=== PATIENT | male | born 1940 | race Caucasian/White ===

== ENCOUNTER 2018-08-15 09:49 | Emergency (ER) | payer MEDICARE, OTHER ==
[~2018-08-15] VITALS: Ht 167.6 cm; Wt 88.5 kg
[~2018-08-15 09:49] MED LIST: AMLO5 PO; ATOR40TA PO; BISA10S PR; CALMOSEPTINE O3.5 GM TP; CHOL10002 PO; CLOBET30L TOP; Calmoseptine Oi71 GM; DILT120 PO; DIPATR PO; DOXA4 PO; Diltiazem ER120 M1 PO; FINA5 PO; FURO20 PO; HYDACE5 PO; HYDACE5325 PO; LANS30EC PO; LEVE500 PO; LISI20 PO; LOSA50 PO; MECL25 PO; MIRT15ST MM; OMEP10ER PO; OMEP20ER PO; OMEPRAZOLE; POLY17UD PO; POTCHL10ER PO; RANI150 PO; SCOPTP TOP; SERT50 PO; SIMV40 PO; TAMS.4ER PO; WARF2.5 PO; WARF3 PO; WARF4 PO; WARF5 PO; WARF6 PO
[2018-08-15] MEDS ORDERED: WARF3 PO (10:04)
[2018-08-15] MEDS ORDERED: Cephalexin500 MG PO (10:34)
== END 2018-08-15 11:45 | disposition home or self-care (01) ==
LOC: ER 09:49
DX: I73.9 Peripheral vascular disease, unspecified (principal); I10 Essential (primary) hypertension; I48.91 Unspecified atrial fibrillation; Z79.01 Long term (current) use of anticoagulants; Z79.899 Other long term (current) drug therapy; Z86.73 Personal history of transient ischemic attack (TIA), and cerebral infarction without residual deficits; Z87.891 Personal history of nicotine dependence
CPT/HCPCS: 99283

== ENCOUNTER 2021-06-30 05:24 | Inpatient (IN) | payer MEDICARE, OTHER ==
[~2021-06-30] VITALS: Ht 165.1 cm; Wt 88.2 kg
[~2021-06-30 05:24] MED LIST changes: +Cephalexin500 MG PO
[2021-06-30 05:52] LABS: BASOPHILS ABSOLUTE AUTO 0.03 K/mm3 (0.00-0.23); BASOPHILS PERCENT AUTO 0 % (0-2); EOSINOPHILS ABSOLUTE AUTO 0.05 K/mm3 (0.00-0.68); EOSINOPHILS PERCENT AUTO 0 % (0-6); Hematocrit 36.3 % (37.0-53.0); Hemoglobin 11.9 g/dL (13.5-17.5); IMMATURE GRAN ABSOLUTE AUTO 0.14 K/mm3 (0.00-0.10); IMMATURE GRAN PERCENT AUTO 1 % (0-1); LYMPHOCYTES ABSOLUTE AUTO 0.52 K/mm3 (0.84-5.20); LYMPHOCYTES PERCENT AUTO 2 % (21-46); MONOCYTES PERCENT AUTO 1 % (4-13); Mean Corpuscular HGB 29.5 pg (26.0-34.0); Mean Corpuscular HGB Conc 32.8 g/dL (31.5-36.5); Mean Corpuscular Volume 90 fL (80-100); Mean Platelet Volume 10.9 fL (9.1-12.4); NEUTROPHILS ABSOLUTE AUTO 21.25 K/mm3 (1.96-9.15); NEUTROPHILS PERCENT AUTO 96 % (41-73); Platelet Count 359 K/mm3 (150-400); RDW Coefficient Variation 15.2 % (11.7-14.2); RDW Standard Deviation 49.9 fL (35.1-46.3); Red Blood Cell Count 4.03 M/mm3 (4.30-5.90); White Blood Cell Count 22.19 K/mm3 (4.00-11.30)
[2021-06-30 07:19] LABS: Troponin I <0.015 ng/mL (0.000-0.040)
[2021-06-30 07:21] LABS: Alanine Aminotransfer (ALT/SGP 28 U/L (12-78); Albumin, Blood 2.4 g/dL (3.4-5.0); Albumin/Globulin Ratio 0.5 (0.8-1.8); Alk Phos 137 U/L (50-136); Anion Gap 6 mmol/L (6-16); Aspartate Aminotrans (AST/SGOT 33 U/L (12-37); Bilirubin, Total 1.7 mg/dL (0.1-1.0); Blood Urea Nitrogen 51 mg/dL (8-24); Bun/Creatinine Ratio 14.5 (12.0-20.0); CO2, Blood 25 mmol/L (21-32); Calcium, Blood 8.7 mg/dL (8.5-10.1); Chloride, Blood 100 mmol/L (98-108); Creatinine, Blood 3.52 mg/dL (0.60-1.20); Globulin, Blood 4.5 g/dL (2.2-4.0); Glomerular Filtration Rate 17 (60-); Glucose, Blood 134 mg/dL (70-99); Potassium, Blood 6.4 mmol/L (3.5-5.5); Sodium, Blood 131 mmol/L (136-145); Total Protein, Blood 6.9 g/dL (6.4-8.2)
[2021-06-30] MEDS ORDERED: DILTIAZEM HCL120 MG PO (08:31)
[2021-06-30] MEDS ORDERED: WARF3 PO (08:32)
[2021-06-30] MEDS ORDERED: MYLANTA GAS MIN42 MG PO (08:33)
[2021-06-30] MEDS ORDERED: WARF4 PO (08:33)
[2021-06-30] MEDS ORDERED: BISA10S PR (08:34)
[2021-06-30] MEDS ORDERED: LOPE2C PO (08:35)
[2021-06-30] MEDS ORDERED: DULCOLAX400 MG/5 M PO (08:35)
[2021-06-30 09:06] LABS: SARS-Cov-2 (COVID-19) PCR, MMC POSITIVE (NEGATIVE)
[2021-06-30 09:39] LABS: Source, Urine Clean Catch
[2021-06-30 09:43] LABS: Appearance, Urine Hazy (Clear); Bilirubin, Urine Neg (Neg); Blood, Urine 5+ (Neg); Color, Urine Yellow (P-Yellow); Glucose Qualitative, Urine Neg (Neg); Ketones, Urine Neg (Neg); Leukocyte Esterase, Urine 3+ (Neg); Nitrite, Urine Neg (Neg); Protein, Urine 3+ (Neg); Urobilinogen, Urine NORM (Normal)
[2021-06-30 10:26] LABS: Red Blood Cells, Urine 0-2 /hpf (0-2); Squamous Epithelial Cells Few /hpf (Few); White Blood Cells, Urine 50-100 /hpf (0-5)
[2021-06-30 10:28] LABS: Bacteria Mod /hpf
[2021-06-30 11:47] LABS: Prothrombin Time Results >90.0 Sec (9.7-11.5)
[2021-06-30 11:48] LABS: International Normalized Ratio >10.00
[2021-06-30 14:43] LABS: Source, Urine Catheter
[2021-06-30 14:48] LABS: Appearance, Urine Turbid (Clear); Bilirubin, Urine Neg (Neg); Blood, Urine 5+ (Neg); Color, Urine Brown (P-Yellow); Glucose Qualitative, Urine Neg (Neg); Ketones, Urine Neg (Neg); Leukocyte Esterase, Urine 3+ (Neg); Nitrite, Urine Neg (Neg); Protein, Urine 3+ (Neg); Specific Gravity, Urine 1.015 (1.003-1.022); Urobilinogen, Urine NORM (Normal); pH, Urine 6.5 (5.0-8.0)
[2021-06-30 14:58] LABS: Bacteria Mod /hpf; Squamous Epithelial Cells Not Seen /hpf (Few); White Blood Cells, Urine TNTC /hpf (0-5)
--- NOTE | 2021-06-30 17:52 | NUR ---
PT ADMITTED 1500, ORIENTED TO ROOM SET UP AND SAFETY. PT IS A/O X4 KNOWS LIMITS. SET UP TELE, A-FIB 60-70'S, SATS 96% ROOM AIR, RESP EVEN UNLABORED. AWAITING CONT PULSE OX SET UP. DAUGHTER IN ROOM INVOLVED IN PT'S CARE.
--- NOTE | 2021-06-30 17:55 | NUR ---
SUMMARY- PT ADMITTED, HISTORY AND ASSESSMENT COMPLETE. MED REC COMPLETE. PT USES CALL LIGHT. ATTENDS FOR INCONT BOWEL. LUNA WITH PINK CLOUDY URINE. NS RUNNING AT 125ML/HR. TOLERATING FOOD AND FLUIDS, FEEDS SELF WITH SET UP.
[2021-06-30] MEDS ORDERED: Acetaminophen650 M1 PO (17:59)
[2021-06-30] MEDS ORDERED: ANTAC+SIM PO (18:06)
[2021-07-01 06:28] LABS: BASOPHILS ABSOLUTE AUTO 0.03 K/mm3 (0.00-0.23); BASOPHILS PERCENT AUTO 0 % (0-2); EOSINOPHILS ABSOLUTE AUTO 0.33 K/mm3 (0.00-0.68); EOSINOPHILS PERCENT AUTO 3 % (0-6); Hematocrit 30.3 % (37.0-53.0); Hemoglobin 9.7 g/dL (13.5-17.5); IMMATURE GRAN ABSOLUTE AUTO 0.06 K/mm3 (0.00-0.10); IMMATURE GRAN PERCENT AUTO 1 % (0-1); LYMPHOCYTES PERCENT AUTO 11 % (21-46); MONOCYTES ABSOLUTE AUTO 0.86 K/mm3 (0.16-1.47); MONOCYTES PERCENT AUTO 8 % (4-13); Mean Corpuscular HGB 29.3 pg (26.0-34.0); Mean Corpuscular Volume 92 fL (80-100); Mean Platelet Volume 10.8 fL (9.1-12.4); NEUTROPHILS ABSOLUTE AUTO 8.33 K/mm3 (1.96-9.15); NEUTROPHILS PERCENT AUTO 77 % (41-73); Platelet Count 241 K/mm3 (150-400); RDW Coefficient Variation 14.9 % (11.7-14.2); RDW Standard Deviation 49.9 fL (35.1-46.3); Red Blood Cell Count 3.31 M/mm3 (4.30-5.90); White Blood Cell Count 10.81 K/mm3 (4.00-11.30)
[2021-07-01 06:59] LABS: Albumin, Blood 1.7 g/dL (3.4-5.0); Albumin/Globulin Ratio 0.5 (0.8-1.8); Bilirubin, Total 0.7 mg/dL (0.1-1.0); Bun/Creatinine Ratio 17.6 (12.0-20.0); Calcium, Blood 8.3 mg/dL (8.5-10.1); Creatinine, Blood 2.04 mg/dL (0.60-1.20); Globulin, Blood 3.7 g/dL (2.2-4.0); Magnesium, Blood 2.2 mg/dL (1.6-2.4); Potassium, Blood 4.5 mmol/L (3.5-5.5); Total Protein, Blood 5.4 g/dL (6.4-8.2)
[2021-07-01 07:03] LABS: International Normalized Ratio 3.99; Prothrombin Time Results 38.3 Sec (9.7-11.5)
--- NOTE | 2021-07-01 07:19 | NUR ---
SHIFT SUMMARY PT ALERT AND ORIENTED. NO ACUTE DISTRESS AVER NIGHT.
[2021-07-01 10:00] LABS: International Normalized Ratio 6.91; Prothrombin Time Results 63.9 Sec (9.7-11.5)
--- NOTE | 2021-07-01 16:41 | NUR ---
SHIFT SUMMARY PATIENT IS ALERT AND ORIENTED, AND COOPERATIVE WITH CARE. THE PATIENT IS ON RA, HAS A LUNA YELLOW CLEAR URINE DRAINING TO GRAVITY. 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 PATIENT WILL CALL TO MAKE NEEDS MET. PATIENT HAS BEEN RECEIVING IV ANTIBIOTICS THIS SHIFT. THE PATIENT HAS NOT COMPLAINED OF ANY DISCOMFORT. BLOOD CULTURE GRAM STAIN POSTIVE FOR COCCI THIS SHIFT. VITAL SIGNS STABLE, THIS NURSE WILL CONTINUE TO CARE FOR THE PATIENT UNTIL SHIFT REPORT IS MADE TO THE ONCOMING NURSE.
[2021-07-02 05:34] LABS: BASOPHILS ABSOLUTE AUTO 0.02 K/mm3 (0.00-0.23); BASOPHILS PERCENT AUTO 0 % (0-2); EOSINOPHILS ABSOLUTE AUTO 0.21 K/mm3 (0.00-0.68); EOSINOPHILS PERCENT AUTO 3 % (0-6); Hematocrit 32.2 % (37.0-53.0); Hemoglobin 10.3 g/dL (13.5-17.5); IMMATURE GRAN ABSOLUTE AUTO 0.03 K/mm3 (0.00-0.10); IMMATURE GRAN PERCENT AUTO 0 % (0-1); LYMPHOCYTES ABSOLUTE AUTO 1.08 K/mm3 (0.84-5.20); LYMPHOCYTES PERCENT AUTO 14 % (21-46); MONOCYTES ABSOLUTE AUTO 0.61 K/mm3 (0.16-1.47); MONOCYTES PERCENT AUTO 8 % (4-13); Mean Corpuscular HGB 29.2 pg (26.0-34.0); Mean Corpuscular Volume 91 fL (80-100); Mean Platelet Volume 10.5 fL (9.1-12.4); NEUTROPHILS ABSOLUTE AUTO 5.68 K/mm3 (1.96-9.15); NEUTROPHILS PERCENT AUTO 74 % (41-73); Platelet Count 244 K/mm3 (150-400); RDW Coefficient Variation 14.6 % (11.7-14.2); RDW Standard Deviation 48.8 fL (35.1-46.3); Red Blood Cell Count 3.53 M/mm3 (4.30-5.90); White Blood Cell Count 7.63 K/mm3 (4.00-11.30)
[2021-07-02 05:50] LABS: International Normalized Ratio 1.64; Prothrombin Time Results 16.7 Sec (9.7-11.5)
--- NOTE | 2021-07-02 06:09 | NUR ---
SHIFT SUMMARY PT RESTING ON BED QUIETLY. NO ACUTE DISTRESS DURING SHIFT. CALL TIMA CALLOWAY.
[2021-07-02 06:33] LABS: Anion Gap 6 mmol/L (6-16); Blood Urea Nitrogen 23 mg/dL (8-24); Bun/Creatinine Ratio 20.5 (12.0-20.0); CO2, Blood 23 mmol/L (21-32); Chloride, Blood 110 mmol/L (98-108); Creatinine, Blood 1.12 mg/dL (0.60-1.20); Glomerular Filtration Rate >60 (60-); Glucose, Blood 90 mg/dL (70-99); Sodium, Blood 139 mmol/L (136-145)
--- NOTE | 2021-07-02 15:32 | NUR ---
PT BP 94/48 P 45 OER TELE. HAS BEEN RUNNING 50-60 PER TELE. LOW 47. CALLED DR RICO, 500 BOLUS AND WILL REVIEW ABX.
--- NOTE | 2021-07-02 17:26 | NUR ---
Prior to admit. pt. living at [facility] assisted living. Able to complete ADLs with very little assistance. Pt. would like to return back to assisted living facility at time of discharge. Contacted [facility] and provided updates to staff. Requested a nursing assessment to return once appropriate. Per staff, pt. will be unable to return until Monday. Likely to need assessment prior to return. Requested that to be done on Monday morning. Provided my contact information to F/U.
--- NOTE | 2021-07-02 17:57 | NUR ---
SHIFT SUMMARY: PATIENT AO X 3 MOST OF DAY. HAS PLEASANT AFFECT AND COOPERATIVE WITH CARE. BLOOD PRESSURE NOTED TO BE SOFT AND BOLUS 500ML NS ORDERED BY AND CARDIZEM 120MG CD IS DISCONTINUED. PATIENT IS RECEIVING CEFTRIAXONE AND NOTED TO BE UTI/SEPSIS. BLOOD PRESSURE AFTER BOLUS 90'S SYSTOLIC. HR IN HIGH 50'S PATIENT REMAINS IN AFIB. DAUGHTER DEANDRA AT BEDSIDE. PATIENT IS INCONTINENT OF STOOL/DIARRHEA TODAY X 1. ATTENDS IN PLACE. LUNA CATH TO GRAVITY. RED AREA AROUND GROIN AND POWDER APPLIED. PATIENT NOTED TO HAVING PITTING EDEMA TO RIGHT LEG FROM THIGH TO VIZCAINO. HIS LEFT ARM IS BRUISED AND COLD IN AREAS. PULSES PALPABLE ON ALL EXTREMITIES. CHANDA ANDERSON RN
--- NOTE | 2021-07-03 04:23 | NUR ---
SHIFT SUMMARY PT RESTING ON BED QUIETLY. IN THE BEGINING OF SHIFT HR GOES LOW TO 40. MD AWARE AND SUGGEST TO KEEP MONITORING. NO ACUTE DISTRESS AT THIS TIME. CALL TIMA CALLOWAY.
--- NOTE | 2021-07-03 17:55 | NUR ---
PT PLEASANT TODAY. VITALS SOME BETTER. HOLDING WELL ON R/A. H/R SLOWLY IMPROVING. PER TELE HIGH 50'S TO LOW 60'S OCC TO 70'S. STILL IN AFIB. DAUGHTER IN ROOM TODAY. LUNGS CLEAR, STOOLS FIRMED UP SOME TO PASTY. PT STATES HE DOES NOT KNOW WHEN HAS BM. EDEMA REMAINS T/O. DOES HAVE SOME SMALL WATER TYPE BLISTER ON PENIS. FLUIDS S/L. NO OTHER CONCERNS NOTED. BED IN LOW POSITION, CALL LITE IN REACH, CALLS APPROP
--- NOTE | 2021-07-04 02:58 | NUR ---
SHIFT SUMMARY PATIENT ALERT AND ORIENTED. RESTING ON BED QUIETLY. HR 50-60. BLOOD PRESSURE WHITIN NORMAL RANGE. CALL LIGHT WHITIN REACH. NO ACUTE DISTRESS AT THIS TIME.
--- NOTE | 2021-07-04 16:29 | NUR ---
TELE CALLED. STATES PT 15 BEAT RUN V-TACH. SP0KE TO PT. HE WATCHING TV. STATES FEELS FINE. NO SYMPTOMS. CALLED DR RICO. NO ORDERS.
--- NOTE | 2021-07-04 16:34 | NUR ---
PT DOING WELL. STATES FEELS PRETTY GOOD. DID HAVE 15 BEAT RUN V-TACH TODAY. PT ASYMPTOMATIC. DR CALLED. NO ORDERS. DR WAS NOTIFIED OF EDEMA AND WATER BLISTERS ON PENIS . NO NEW ORDERS. DAUGHTER IN TO VISIT TODAY. NO OTHER NEW CONCERNS NOTED. BED IN LOW POSITION, CALL LITE IN REACH, CALLS APPROP
--- NOTE | 2021-07-05 05:52 | NUR ---
SHIFT SUMMARY PT RESTING ON BED QUIETLY. NO ACUTE DISTRESS OVERNIGHT. VS WHITIN NORMAL RANGE. KEEP MONITORING
[2021-07-05] MEDS ORDERED: CEFP200 PO (15:37)
--- NOTE | 2021-07-05 16:40 | NUR ---
Per Dr. Meeks discharge appropriate for today. Spoke with patient and he is aware of discharge and does not oppose. Patient scheduled to return to [facility] today at 4:30 pm; coordinated transportation with [facility]. Discharge/medication reconciliation faxed to [facility] (fax confirmation completed).
--- NOTE | 2021-07-05 18:12 | NUR ---
Alert and oriented x3 , able to make needs known. Two persons extensive assist transfer and mobility. left sided weakness noted with minimal strength. Right side with stronger strength 4/5. Harris cath is patent with clear yellow . Patient is discharged to [facility] in stable condition.
== END 2021-07-05 17:10 | disposition home or self-care (01) | DRG 871 ==
LOC: ER 05:24 → ERHOLD 10:35 → MEDS 10:35 → ENPENDDIS 07-05 15:11 → MEDS 07-05 17:10
PROVIDERS: Emergency Medicine; ADMIT Family Medicine
PROC: 8E0ZXY6 Isolation (ICD-10-PCS; principal; 2021-06-30)
PROC: 3E02340 Introduction of Influenza Vaccine into Muscle, Percutaneous Approach (ICD-10-PCS; 2021-06-30)
DX: A41.51 Sepsis due to Escherichia coli [E. coli] (principal); U07.1 COVID-19; N17.9 Acute kidney failure, unspecified; N39.0 Urinary tract infection, site not specified; M80.08XA Age-related osteoporosis with current pathological fracture, vertebra(e), initial encounter for fracture; I69.354 Hemiplegia and hemiparesis following cerebral infarction affecting left non-dominant side; N13.6 Pyonephrosis; R65.20 Severe sepsis without septic shock; Z23 Encounter for immunization; E87.5 Hyperkalemia; Z66 Do not resuscitate; I48.91 Unspecified atrial fibrillation; Z79.01 Long term (current) use of anticoagulants; E78.5 Hyperlipidemia, unspecified; N40.0 Benign prostatic hyperplasia without lower urinary tract symptoms; I11.0 Hypertensive heart disease with heart failure; Z90.49 Acquired absence of other specified parts of digestive tract; Z87.891 Personal history of nicotine dependence; Z79.899 Other long term (current) drug therapy; I49.3 Ventricular premature depolarization; R79.89 Other specified abnormal findings of blood chemistry
CPT/HCPCS: 36415; 51702; 71046; 74176; 76770; 80048; 80053; 81001; 83605; 83735; 84132; 84484; 85025; 85610; 87040; 87076; 87077; 87086; 87186; 93005; 93010; 94762; 96365; 96366; 96367; 96375; 97166; 97530; 99285-25; A9270; J0696; J1644; J1815; J2020; J7030; J7120; U0004

== ENCOUNTER → 2021-08-04 | Outpatient (CLI) | payer MEDICARE, OTHER ==
[~2021-08-04] MED LIST changes: +ANTAC+SIM PO; +Acetaminophen650 M1 PO; +CEFP200 PO; +DILTIAZEM HCL120 MG PO; +DULCOLAX400 MG/5 M PO; +LOPE2C PO; +MYLANTA GAS MIN42 MG PO
[2021-08-04 15:19] LABS: Albumin, Blood 2.5 g/dL (3.4-5.0); Anion Gap 4 mmol/L (6-16); Blood Urea Nitrogen 29 mg/dL (8-24); Bun/Creatinine Ratio 19.2 (12.0-20.0); CO2, Blood 29 mmol/L (21-32); Calcium, Blood 8.5 mg/dL (8.5-10.1); Chloride, Blood 108 mmol/L (98-108); Creatinine, Blood 1.51 mg/dL (0.60-1.20); Glomerular Filtration Rate 45 (60-); Glucose, Blood 114 mg/dL (70-99); Phosphorus, Blood 3.3 mg/dL (2.5-4.9); Potassium, Blood 5.5 mmol/L (3.5-5.5); Sodium, Blood 141 mmol/L (136-145)
== END | disposition home or self-care (01) ==
LOC: LAB SHORT 15:04 → LAB 15:04
PROVIDERS: Chiropractor
DX: N18.9 Chronic kidney disease, unspecified (principal)
CPT/HCPCS: 80069

== ENCOUNTER 2021-12-04 06:05 | Emergency (ER) | payer MEDICARE, OTHER ==
[~2021-12-04] VITALS: Ht 175.3 cm; Wt 95.2 kg
[~2021-12-04 06:05] MED LIST changes: +CEPH500 PO; +Clindamycin HC150 MG PO
[2021-12-04] MEDS ORDERED: NYAMYC15 G1 TOP (07:35)
[2021-12-04] MEDS ORDERED: METO25ER PO (07:45)
[2021-12-04] MEDS ORDERED: Coumadin2 MG PO (07:47)
[2022-03-22] MEDS ORDERED: CALCIUM 500 MG1 EAC2 PO (14:45)
[2022-04-18] MEDS ORDERED: CEFD300 PO ×2 (09:36→09:49)
== END 2021-12-04 10:07 | disposition home or self-care (01) ==
LOC: ER 06:05
DX: T83.028A Displacement of other urinary catheter, initial encounter (principal); L98.491 Non-pressure chronic ulcer of skin of other sites limited to breakdown of skin; B37.2 Candidiasis of skin and nail; I11.0 Hypertensive heart disease with heart failure; I50.9 Heart failure, unspecified; I48.91 Unspecified atrial fibrillation; E78.5 Hyperlipidemia, unspecified; Z86.73 Personal history of transient ischemic attack (TIA), and cerebral infarction without residual deficits; Z79.01 Long term (current) use of anticoagulants; Z79.899 Other long term (current) drug therapy
CPT/HCPCS: 51702; 99283-25; A9270

== ENCOUNTER → 2021-12-08 | Outpatient (CLI) | payer MEDICARE, OTHER ==
[~2021-12-08] MED LIST changes: +Coumadin2 MG PO; +METO25ER PO; +NYAMYC15 G1 TOP
== END | disposition home or self-care (01) ==
LOC: LAB SHORT 10:43
DX: L03.115 Cellulitis of right lower limb (principal)
CPT/HCPCS: 87070; 87075; 87077; 87147; 87186; 87205

== ENCOUNTER 2022-03-23 08:30 | Day surgery (SDC) | payer MEDICARE, OTHER ==
[~2022-03-23] VITALS: Ht 157.5 cm; Wt 96.0 kg
[~2022-03-23 08:30] MED LIST changes: +CALCIUM 500 MG1 EAC2 PO
[2022-03-23] MEDS ORDERED: ALEVAZOL56.7 G1 TD (09:29)
[2022-03-23] MEDS ORDERED: Acetaminophen325 M1 PO (09:30)
[2022-03-23] MEDS ORDERED: DULCOLAX400 MG/5 M PO (09:31)
[2022-03-23] MEDS ORDERED: THERA-D2000 UNIT PO (09:37)
[2022-03-23 09:41] LABS: Creatinine, Blood 0.96 mg/dL (0.60-1.20); Potassium, Blood 3.8 mmol/L (3.5-5.5)
[2022-03-23 09:53] LABS: Hematocrit 35.3 % (37.0-53.0); Mean Corpuscular HGB Conc 31.2 g/dL (31.5-36.5); Mean Corpuscular Volume 90 fL (80-100); Mean Platelet Volume 10.6 fL (9.1-12.4); Platelet Count 186 K/mm3 (150-400); RDW Coefficient Variation 16.2 % (11.7-14.2); RDW Standard Deviation 53.5 fL (35.1-46.3); Red Blood Cell Count 3.93 M/mm3 (4.30-5.90); White Blood Cell Count 10.44 K/mm3 (4.00-11.30)
--- NOTE | 2022-03-23 14:05 | NUR ---
PT TO RECOVERY POST PROCEDURE. PT DROWSY, BUT EASILY ROUSABLE; ANSWERS QUESTIONS APPROPRIATELY; DENIES PAIN POST PROCEUDRE. MONITOR AFIB 60'S, B/P 100/59, AFEBRILE, SPO2 96% RA. R GROIN NO SWELLING/HEMATOMA, TEGADERM DRSG INTACT; ANGIO SEAL DEPLOYED, RLE PULSES DP DOP, PT 1+. SUPRA PUBIC CATH IN PLACE, NO SWELLING OR BLEEDING AT SITE; CONNECTED TO DRAINAGE BAG-DRAINING BLOOD-TINGED URINE. INDWELLING LUNA WAS REMOVED AT END OF PROCEDURE IN LAB.
--- NOTE | 2022-03-23 15:05 | NUR ---
PT'S HOB ELEVATED, SITE UNCHANGED.
--- NOTE | 2022-03-23 16:35 | NUR ---
PT DRESSED WITH MAX ASSIST, TOTAL ASSIST BACK TO POWER CHAIR; SITE UNCHANGED, IV REMOVED-CANNULA INTACT.
--- NOTE | 2022-03-23 16:55 | NUR ---
GIORGIO AT [facility] GIVEN REPORT PRIOR TO PT'S RETURN; ALL QUESTIONS ANSWERED. DR MAHTEW INTO REVIEW PROCEDURE RESULTS WITH PT AND DAUGHTER.
--- NOTE | 2022-03-23 17:13 | NUR ---
PT AND DAUGHTER GIVEN DISCHARGE INSTRUCTIONS, MED LIST AND AFTER CARE INSTRUCTIONS; VERBALIZED GOOD UNDERSTANDING. PT LEFT FACILITY VIA POWER CHAIR, CONDITION STABLE. DISCHARGE INSTRUCTIONS REVIEWED WITH HOMERO DARNELL WHEN REPORT WAS GIVEN.
== END 2022-03-23 17:13 | disposition home or self-care (01) ==
LOC: MHTC 08:30
PROVIDERS: Radiology Diagnostic Radiology
DX: N40.1 Benign prostatic hyperplasia with lower urinary tract symptoms (principal); R33.8 Other retention of urine; I10 Essential (primary) hypertension; E78.5 Hyperlipidemia, unspecified; I11.0 Hypertensive heart disease with heart failure; I50.9 Heart failure, unspecified; I48.91 Unspecified atrial fibrillation; Z90.49 Acquired absence of other specified parts of digestive tract; Z79.01 Long term (current) use of anticoagulants
CPT/HCPCS: 37243; 51102; 75716; 75736; 75774; 76937; 80048; 85027; 93005; 93010; 99152; 99153; C1729; C1760; C1769; C1887; C1894; J1644; J2250; J3010; J7030; J7040; Q9967

== ENCOUNTER → 2022-06-16 | Outpatient (CLI) | payer MEDICARE, OTHER ==
[~2022-06-16] MED LIST changes: +ALEVAZOL56.7 G1 TD; +Acetaminophen325 M1 PO; +CEFD300 PO; +THERA-D2000 UNIT PO
[2022-06-16 12:17] LABS: Source, Urine Straight Cath
[2022-06-16 12:30] LABS: White Blood Cells, Urine 50-100 /hpf (0-5)
[2022-06-16 12:31] LABS: Bacteria Mod /hpf; Red Blood Cells, Urine 0-2 /hpf (0-2); Renal Epithelial Few /hpf (0-Rare); Squamous Epithelial Cells Not Seen /hpf (Few)
== END | disposition home or self-care (01) ==
LOC: LAB SHORT 12:15 → LAB 12:15
PROVIDERS: General Practice
DX: R33.9 Retention of urine, unspecified (principal)
CPT/HCPCS: 81015; 87077; 87086; 87186

== ENCOUNTER 2022-09-14 05:14 | Emergency (ER) | payer MEDICARE, OTHER ==
[~2022-09-14] VITALS: Ht 167.6 cm; Wt 86.2 kg
[2022-09-14 05:38] LABS: BASOPHILS ABSOLUTE AUTO 0.02 K/mm3 (0.00-0.23); BASOPHILS PERCENT AUTO 0 % (0-2); EOSINOPHILS PERCENT AUTO 1 % (0-6); Hemoglobin 12.1 g/dL (13.5-17.5); IMMATURE GRAN ABSOLUTE AUTO 0.02 K/mm3 (0.00-0.10); IMMATURE GRAN PERCENT AUTO 0 % (0-1); LYMPHOCYTES ABSOLUTE AUTO 0.63 K/mm3 (0.84-5.20); LYMPHOCYTES PERCENT AUTO 9 % (21-46); MONOCYTES ABSOLUTE AUTO 0.47 K/mm3 (0.16-1.47); MONOCYTES PERCENT AUTO 7 % (4-13); Mean Corpuscular HGB 28.5 pg (26.0-34.0); Mean Corpuscular HGB Conc 32.7 g/dL (31.5-36.5); Mean Corpuscular Volume 87 fL (80-100); Mean Platelet Volume 11.6 fL (9.1-12.4); NEUTROPHILS ABSOLUTE AUTO 5.86 K/mm3 (1.96-9.15); NEUTROPHILS PERCENT AUTO 83 % (41-73); Platelet Count 165 K/mm3 (150-400); RDW Coefficient Variation 16.9 % (11.7-14.2); RDW Standard Deviation 53.7 fL (35.1-46.3); Red Blood Cell Count 4.24 M/mm3 (4.30-5.90)
[2022-09-14 05:59] LABS: Albumin, Blood 3.4 g/dL (3.4-5.0); Albumin/Globulin Ratio 0.9 (0.8-1.8); Bilirubin, Total 0.8 mg/dL (0.1-1.0); Calcium, Blood 8.8 mg/dL (8.5-10.1); Creatinine, Blood 1.04 mg/dL (0.60-1.20); Globulin, Blood 3.7 g/dL (2.2-4.0); Potassium, Blood 4.4 mmol/L (3.5-5.5); Total Protein, Blood 7.1 g/dL (6.4-8.2)
[2022-09-14 08:26] LABS: Source, Urine Suprapubic Cath
[2022-09-14 08:45] LABS: Appearance, Urine Hazy (Clear); Bilirubin, Urine Neg (Neg); Blood, Urine 4+ (Neg); Color, Urine Yellow (P-Yellow); Glucose Qualitative, Urine Neg (Neg); Ketones, Urine Neg (Neg); Leukocyte Esterase, Urine 3+ (Neg); Nitrite, Urine Pos (Neg); Protein, Urine 2+ (Neg); Specific Gravity, Urine 1.015 (1.003-1.022); Urobilinogen, Urine NORM (Normal)
[2022-09-14 09:15] LABS: Bacteria Many /hpf
[2022-09-14 09:17] LABS: Squamous Epithelial Cells Not Seen /hpf (Few); Triple Phosphate Crystals Rare /hpf
[2022-09-14] MEDS ORDERED: CEFP200 PO (09:31)
== END 2022-09-14 10:51 | disposition home or self-care (01) ==
LOC: ER 05:14
PROVIDERS: Emergency Medicine; Student in an Organized Health Care Education/Training Program
DX: T83.091A Other mechanical complication of indwelling urethral catheter, initial encounter (principal); T83.511A Infection and inflammatory reaction due to indwelling urethral catheter, initial encounter; N40.1 Benign prostatic hyperplasia with lower urinary tract symptoms; R33.8 Other retention of urine; I11.0 Hypertensive heart disease with heart failure; I50.9 Heart failure, unspecified; E78.5 Hyperlipidemia, unspecified; Z79.899 Other long term (current) drug therapy; Z79.01 Long term (current) use of anticoagulants; Z86.73 Personal history of transient ischemic attack (TIA), and cerebral infarction without residual deficits; Y73.8 Miscellaneous gastroenterology and urology devices associated with adverse incidents, not elsewhere classified
CPT/HCPCS: 36415; 51798; 74177; 80053; 81001; 85025; Q9967

== ENCOUNTER 2022-10-06 13:35 | Emergency (ER) | payer MEDICARE, OTHER ==
[~2022-10-06] VITALS: Ht 160 cm; Wt 85.3 kg
[2022-10-06 16:19] LABS: Source, Urine Suprapubic Cath
[2022-10-06 16:22] LABS: Appearance, Urine Cloudy (Clear); Bilirubin, Urine Neg (Neg); Blood, Urine 4+ (Neg); Color, Urine Yellow (P-Yellow); Glucose Qualitative, Urine Neg (Neg); Ketones, Urine Neg (Neg); Leukocyte Esterase, Urine 3+ (Neg); Nitrite, Urine Pos (Neg); Protein, Urine 3+ (Neg); Urobilinogen, Urine NORM (Normal)
[2022-10-06 16:43] LABS: White Blood Cells, Urine TNTC /hpf (0-5)
[2022-10-06 16:44] LABS: Bacteria Many /hpf; Squamous Epithelial Cells Not Seen /hpf (Few)
[2022-10-06] MEDS ORDERED: CEFD300 PO (16:47)
== END 2022-10-06 18:55 | disposition home or self-care (01) ==
LOC: ER 13:35
PROVIDERS: Emergency Medicine
DX: T83.090A Other mechanical complication of cystostomy catheter, initial encounter (principal); Y84.6 Urinary catheterization as the cause of abnormal reaction of the patient, or of later complication, without mention of misadventure at the time of the procedure; N39.0 Urinary tract infection, site not specified; I48.91 Unspecified atrial fibrillation; I11.0 Hypertensive heart disease with heart failure; I50.9 Heart failure, unspecified; E78.5 Hyperlipidemia, unspecified; Z79.899 Other long term (current) drug therapy; Z79.01 Long term (current) use of anticoagulants
CPT/HCPCS: 51705; 81001; 99283-25; C2627

== ENCOUNTER 2023-02-09 16:00 | Emergency (ER) | payer MEDICARE, OTHER ==
[~2023-02-09] VITALS: Ht 165.1 cm; Wt 86.2 kg
[2023-02-09 16:25] VITALS: BP 133/81
[2023-02-09 17:03] LABS: BASOPHILS ABSOLUTE AUTO 0.04 K/mm3 (0.00-0.23); BASOPHILS PERCENT AUTO 1 % (0-2); EOSINOPHILS ABSOLUTE AUTO 0.33 K/mm3 (0.00-0.68); EOSINOPHILS PERCENT AUTO 4 % (0-6); Hematocrit 40.2 % (37.0-53.0); Hemoglobin 12.9 g/dL (13.5-17.5); IMMATURE GRAN ABSOLUTE AUTO 0.12 K/mm3 (0.00-0.10); IMMATURE GRAN PERCENT AUTO 2 % (0-1); LYMPHOCYTES ABSOLUTE AUTO 0.67 K/mm3 (0.84-5.20); LYMPHOCYTES PERCENT AUTO 8 % (21-46); MONOCYTES PERCENT AUTO 9 % (4-13); Mean Corpuscular HGB 29.9 pg (26.0-34.0); Mean Corpuscular HGB Conc 32.1 g/dL (31.5-36.5); Mean Corpuscular Volume 93 fL (80-100); Mean Platelet Volume 10.2 fL (9.1-12.4); NEUTROPHILS ABSOLUTE AUTO 6.38 K/mm3 (1.96-9.15); NEUTROPHILS PERCENT AUTO 77 % (41-73); Platelet Count 210 K/mm3 (150-400); RDW Coefficient Variation 14.8 % (11.7-14.2); RDW Standard Deviation 51.3 fL (35.1-46.3); Red Blood Cell Count 4.31 M/mm3 (4.30-5.90); White Blood Cell Count 8.24 K/mm3 (4.00-11.30)
[2023-02-09 17:28] LABS: Albumin, Blood 2.7 g/dL (3.4-5.0); Albumin/Globulin Ratio 0.7 (0.8-1.8); Bilirubin, Total 0.6 mg/dL (0.1-1.0); Bun/Creatinine Ratio 19.9 (12.0-20.0); Creatinine, Blood 0.96 mg/dL (0.60-1.20); Globulin, Blood 3.7 g/dL (2.2-4.0); Potassium, Blood 4.6 mmol/L (3.5-5.5); Total Protein, Blood 6.4 g/dL (6.4-8.2)
== END 2023-02-09 18:10 | disposition home or self-care (01) ==
LOC: ER 16:00
PROVIDERS: Emergency Medicine
DX: L89.319 Pressure ulcer of right buttock, unspecified stage (principal); I11.0 Hypertensive heart disease with heart failure; I50.9 Heart failure, unspecified; I48.91 Unspecified atrial fibrillation; E78.5 Hyperlipidemia, unspecified
CPT/HCPCS: 80053; 83605; 85025; 99283

== ENCOUNTER 2023-03-15 04:08 | Day surgery (SDC) | payer MEDICARE, OTHER | END 2023-03-15 22:47 | disposition home or self-care (01) | LOC: WOUND 04:08 | DX: L89.892 Pressure ulcer of other site, stage 2 (principal); Z99.3 Dependence on wheelchair; Z86.73 Personal history of transient ischemic attack (TIA), and cerebral infarction without residual deficits; Z87.891 Personal history of nicotine dependence | CPT/HCPCS: G0463 ==

== ENCOUNTER 2024-02-25 10:08 | Emergency (ER) | payer MEDICARE, OTHER ==
[~2024-02-25] VITALS: Ht 160 cm; Wt 100.7 kg
[~2024-02-25 10:08] MED LIST changes: +Macrobid 100 M100 MG PO
[2024-02-25 11:08] LABS: Source, Urine Suprapubic Cath
[2024-02-25 11:14] LABS: Appearance, Urine Hazy (Clear); Bilirubin, Urine Neg (Neg); Blood, Urine 3+ (Neg); Color, Urine Yellow (P-Yellow); Glucose Qualitative, Urine Neg (Neg); Ketones, Urine Neg (Neg); Leukocyte Esterase, Urine 3+ (Neg); Nitrite, Urine Pos (Neg); Protein, Urine 1+ (Neg); Specific Gravity, Urine 1.005 (1.003-1.022); Urobilinogen, Urine NORM (Normal)
[2024-02-25 11:22] LABS: Bacteria Few /hpf; Squamous Epithelial Cells Not Seen /hpf (Few); White Blood Cells, Urine 50-100 /hpf (0-5)
[2024-02-25 11:30] VITALS: BP 125/94
== END 2024-02-25 11:38 | disposition home or self-care (01) ==
LOC: ER 10:08
PROVIDERS: Emergency Medicine
DX: T83.098A Other mechanical complication of other urinary catheter, initial encounter (principal); I11.9 Hypertensive heart disease without heart failure; I50.9 Heart failure, unspecified; I48.91 Unspecified atrial fibrillation; E78.5 Hyperlipidemia, unspecified; G47.33 Obstructive sleep apnea (adult) (pediatric); Z79.899 Other long term (current) drug therapy; Z87.891 Personal history of nicotine dependence; Z86.73 Personal history of transient ischemic attack (TIA), and cerebral infarction without residual deficits
CPT/HCPCS: 51798; 81001; 87077; 87086; 87186; 99283

== ENCOUNTER 2024-04-19 20:39 | Emergency (ER) | payer MEDICARE, OTHER ==
[~2024-04-19] VITALS: Ht 165.1 cm; Wt 105.2 kg
[2024-04-19 20:47] VITALS: BP 179/99
[2024-04-19 21:25] LABS: Source, Urine Suprapubic Cath
[2024-04-19 21:40] LABS: Bilirubin, Urine Neg (Neg); Blood, Urine 4+ (Neg); Glucose Qualitative, Urine Neg (Neg); Ketones, Urine Neg (Neg); Leukocyte Esterase, Urine 3+ (Neg); Nitrite, Urine Pos (Neg); Protein, Urine 3+ (Neg); Specific Gravity, Urine 1.015 (1.003-1.022); Urobilinogen, Urine NORM (Normal); pH, Urine 6.5 (5.0-8.0)
[2024-04-19 21:46] LABS: Appearance, Urine Turbid (Clear); Color, Urine Yellow (P-Yellow)
[2024-04-19 21:49] LABS: Bacteria Many /hpf; Squamous Epithelial Cells Mod /hpf (Few); White Blood Cells, Urine TNTC /hpf (0-5)
[2024-04-19] MEDS ORDERED: CEPH500 PO (22:43)
== END 2024-04-20 21:48 | disposition home or self-care (01) ==
LOC: ER 20:39
PROVIDERS: Physician Assistant
DX: N39.0 Urinary tract infection, site not specified (principal); Z79.01 Long term (current) use of anticoagulants; Z79.899 Other long term (current) drug therapy; I11.0 Hypertensive heart disease with heart failure; I48.91 Unspecified atrial fibrillation; E78.5 Hyperlipidemia, unspecified; I50.9 Heart failure, unspecified; G47.33 Obstructive sleep apnea (adult) (pediatric); Z87.891 Personal history of nicotine dependence
CPT/HCPCS: 51705; 81001; 87077; 87086; 87186; 99283-25; C2627

== ENCOUNTER 2024-05-14 18:09 | Emergency (ER) | payer MEDICARE, OTHER ==
[~2024-05-14] VITALS: Ht 170.2 cm; Wt 103.0 kg
[2024-05-14] MEDS ORDERED: DIFLUCAN PO (18:20)
[2024-05-14] MEDS ORDERED: Coumadin2 MG PO (18:22)
[2024-05-14 18:46] LABS: Source, Urine Clean Catch
[2024-05-14 18:49] LABS: Appearance, Urine Hazy (Clear); Bilirubin, Urine Neg (Neg); Blood, Urine 3+ (Neg); Glucose Qualitative, Urine Neg (Neg); Ketones, Urine Neg (Neg); Leukocyte Esterase, Urine 3+ (Neg); Nitrite, Urine Pos (Neg); Protein, Urine 1+ (Neg); Urobilinogen, Urine NORM (Normal)
[2024-05-14 19:05] LABS: Color, Urine Pale Yellow (P-Yellow); White Blood Cells, Urine TNTC /hpf (0-5)
[2024-05-14 19:06] LABS: Bacteria Mod /hpf; Red Blood Cells, Urine 25-50 /hpf (0-2); Squamous Epithelial Cells Not Seen /hpf (Few)
[2024-05-14] MEDS ORDERED: Cefpodoxime Proxetil 200 MG Tab PO ONE (19:25)
[2024-05-14] MEDS ORDERED: CEFP200 PO (19:33)
[2024-05-14 20:10] VITALS: BP 170/89
[2024-05-18] MEDS ORDERED: FOSFOMYCIN TROME3 G1 PO (09:48)
== END 2024-05-14 20:10 | disposition home or self-care (01) ==
LOC: ER 18:09
PROVIDERS: Student in an Organized Health Care Education/Training Program
DX: T83.091A Other mechanical complication of indwelling urethral catheter, initial encounter (principal); N30.00 Acute cystitis without hematuria; N30.20 Other chronic cystitis without hematuria; I11.0 Hypertensive heart disease with heart failure; I50.9 Heart failure, unspecified; G47.33 Obstructive sleep apnea (adult) (pediatric); Z86.73 Personal history of transient ischemic attack (TIA), and cerebral infarction without residual deficits; I48.91 Unspecified atrial fibrillation; E78.5 Hyperlipidemia, unspecified; Z87.891 Personal history of nicotine dependence; Z79.01 Long term (current) use of anticoagulants; Z79.899 Other long term (current) drug therapy
CPT/HCPCS: 51705; 51798; 81001; 87077; 87086; 87186; 99283-25; A9270; C2627

== ENCOUNTER 2024-05-23 14:28 | Emergency (ER) | payer MEDICARE, OTHER ==
[~2024-05-23] VITALS: Ht 172.7 cm; Wt 103.0 kg
[~2024-05-23 14:28] MED LIST changes: +DIFLUCAN PO; +FOSFOMYCIN TROME3 G1 PO
[2024-05-23 14:31] VITALS: BP 176/81
[2024-05-23] MEDS ORDERED: LevoFLOXacin 750 MG/D5W 150ML 150 ML IV ONE (15:20)
[2024-05-23] MEDS ORDERED: cefTAZidime 2,000 MG in NS 100 ML IV ONE (15:20)
== END 2024-05-23 18:41 | disposition home or self-care (01) ==
LOC: ER 14:28
DX: N39.0 Urinary tract infection, site not specified (principal); Z79.899 Other long term (current) drug therapy; Z79.01 Long term (current) use of anticoagulants; I48.91 Unspecified atrial fibrillation; I11.0 Hypertensive heart disease with heart failure; I50.9 Heart failure, unspecified; G47.33 Obstructive sleep apnea (adult) (pediatric); Z87.891 Personal history of nicotine dependence
CPT/HCPCS: 96365; 96366; 96367; 99281-25; J0713; J1956

== ENCOUNTER 2024-05-25 02:03 | Day surgery (SDC) | payer MEDICARE, OTHER ==
[2024-05-25] MEDS ORDERED: LevoFLOXacin 750 MG/D5W 150ML 150 ML IV SCH (07:00)
[2024-05-25] MEDS ORDERED: cefTAZidime 2,000 MG in NS 100 ML IV SCH (07:00)
[2024-05-25 08:00] VITALS: BP 146/90
[2024-05-25 15:13] VITALS: BP 144/83
--- NOTE | 2024-05-25 16:18 | NUR ---
PATIENT SHOWED UP TO 1630 APPT AT 1400. CALLED PHARMACY AND SPOKE WITH ANA LAURA WHO SAID WE HAVE TO WAIT UNTIL AT LEAST 1500 TO ADMINISTER THE MEDICATION. PATIENT WAS AGREEABLE TO WAIT UNTIL THAT TIME. THIS RN CALLED THE INTERMEDIATE [facility] AND SPOKE WITH A FINANCIAL [employer]IREMENT PLAN SPECIALIST THAT SAID ALL OF HIS RIDES ARE SET UP THIS WAY BUT SHE WOULD TALK TO ANOTHER FINANCIAL [employer]IREMENT PLAN SPECIALIST THAT KNOWS HOW TO RESCHEDULE RIDES AND GET THEM RESCHEDULED FOR THE APPROPRIATE TIME.
== END 2024-05-25 15:45 | disposition home or self-care (01) ==
LOC: ATC 02:03
DX: N39.0 Urinary tract infection, site not specified (principal); I48.91 Unspecified atrial fibrillation; E78.5 Hyperlipidemia, unspecified; I11.0 Hypertensive heart disease with heart failure; I50.9 Heart failure, unspecified; Z79.01 Long term (current) use of anticoagulants; Z79.899 Other long term (current) drug therapy; Z87.891 Personal history of nicotine dependence
CPT/HCPCS: 96365; 96368; J0713; J1956

== ENCOUNTER 2024-05-26 07:17 | Day surgery (SDC) | payer MEDICARE, OTHER ==
[~2024-05-26 07:17] MED LIST changes: +LevoFLOXacin 750 MG/D5W 150ML 150 ML IV SCH; +cefTAZidime 2,000 MG in NS 100 ML IV SCH
[2024-05-26 07:20] VITALS: BP 163/93
[2024-05-26 15:36] VITALS: BP 141/71
== END 2024-05-26 16:05 | disposition home or self-care (01) ==
LOC: ATC 07:17
DX: N39.0 Urinary tract infection, site not specified (principal); I11.0 Hypertensive heart disease with heart failure; I50.9 Heart failure, unspecified; E78.5 Hyperlipidemia, unspecified; I48.91 Unspecified atrial fibrillation; G47.33 Obstructive sleep apnea (adult) (pediatric); Z87.891 Personal history of nicotine dependence; Z79.01 Long term (current) use of anticoagulants; Z79.899 Other long term (current) drug therapy
CPT/HCPCS: 96365; 96368; J0713; J1956

== ENCOUNTER 2024-05-27 04:03 | Day surgery (SDC) | payer MEDICARE, OTHER ==
[~2024-05-27 04:03] MED LIST changes: -LevoFLOXacin 750 MG/D5W 150ML 150 ML IV SCH; -cefTAZidime 2,000 MG in NS 100 ML IV SCH
[2024-05-27] MEDS ORDERED: LevoFLOXacin 750 MG/D5W 150ML 150 ML IV SCH (06:00)
[2024-05-27] MEDS ORDERED: cefTAZidime 2,000 MG in NS 100 ML IV SCH (06:00)
[2024-05-27 07:44] VITALS: BP 167/93
[2024-05-27 15:05] VITALS: BP 132/73
== END 2024-05-27 09:12 | disposition home or self-care (01) ==
LOC: ATC 04:03
DX: N39.0 Urinary tract infection, site not specified (principal); E78.5 Hyperlipidemia, unspecified; I48.91 Unspecified atrial fibrillation; G47.33 Obstructive sleep apnea (adult) (pediatric); I11.0 Hypertensive heart disease with heart failure; I50.9 Heart failure, unspecified; Z79.899 Other long term (current) drug therapy; Z87.891 Personal history of nicotine dependence
CPT/HCPCS: 96365; 96368; J0713; J1956

== ENCOUNTER 2024-05-28 01:50 | Day surgery (SDC) | payer MEDICARE, OTHER ==
[~2024-05-28 01:50] MED LIST changes: +cefTAZidime 2,000 MG in NS 100 ML IV SCH
[2024-05-28 08:09] VITALS: BP 163/84
[2024-05-28] MEDS ORDERED: LevoFLOXacin 750 MG/D5W 150ML 150 ML IV SCH (09:00)
== END 2024-05-28 16:48 | disposition home or self-care (01) ==
LOC: ATC 01:50
DX: N39.0 Urinary tract infection, site not specified (principal); I11.0 Hypertensive heart disease with heart failure; I50.9 Heart failure, unspecified; E78.5 Hyperlipidemia, unspecified; I48.91 Unspecified atrial fibrillation; G47.33 Obstructive sleep apnea (adult) (pediatric); Z87.891 Personal history of nicotine dependence; Z79.01 Long term (current) use of anticoagulants; Z79.899 Other long term (current) drug therapy
CPT/HCPCS: 96365; 96368; J0713; J1956

== ENCOUNTER 2024-07-21 23:03 | Emergency (ER) | payer MEDICARE, OTHER ==
[~2024-07-21] VITALS: Ht 175.3 cm; Wt 99.8 kg
[~2024-07-21 23:03] MED LIST changes: -cefTAZidime 2,000 MG in NS 100 ML IV SCH
[2024-07-21 23:46] VITALS: BP 183/109
[2024-07-21] MEDS ORDERED: Lidocaine 2% Jelly Uro-Jet UR ONE (23:50)
[2024-07-22 00:36] LABS: Source, Urine Foley catheter
[2024-07-22 00:44] LABS: Bilirubin, Urine Neg (Neg); Blood, Urine 4+ (Neg); Glucose Qualitative, Urine Neg (Neg); Ketones, Urine Neg (Neg); Leukocyte Esterase, Urine 3+ (Neg); Nitrite, Urine Pos (Neg); Protein, Urine 1+ (Neg); Urobilinogen, Urine NORM (Normal)
[2024-07-22 00:46] LABS: Appearance, Urine Hazy (Clear); Color, Urine Yellow (P-Yellow)
[2024-07-22 00:50] LABS: Bacteria Mod /hpf; Squamous Epithelial Cells Not Seen /hpf (Few); White Blood Cells, Urine TNTC /hpf (0-5)
[2024-07-22] MEDS ORDERED: Cefpodoxime Proxetil 200 MG Tab PO ONE (01:15)
== END 2024-07-22 02:43 | disposition home or self-care (01) ==
LOC: ER 23:03
PROVIDERS: Emergency Medicine
DX: T83.090A Other mechanical complication of cystostomy catheter, initial encounter (principal); N30.00 Acute cystitis without hematuria; I69.354 Hemiplegia and hemiparesis following cerebral infarction affecting left non-dominant side; I11.0 Hypertensive heart disease with heart failure; I50.9 Heart failure, unspecified; I48.91 Unspecified atrial fibrillation; N40.0 Benign prostatic hyperplasia without lower urinary tract symptoms; E78.5 Hyperlipidemia, unspecified; G47.33 Obstructive sleep apnea (adult) (pediatric); Z79.01 Long term (current) use of anticoagulants; Z79.899 Other long term (current) drug therapy; Z87.891 Personal history of nicotine dependence
CPT/HCPCS: 51705; 81001; 87077; 87086; 87147; 87186; 99283-25; A9270; C2627

== ENCOUNTER 2024-08-20 05:24 | Emergency (ER) | payer MEDICARE, OTHER ==
[~2024-08-20] VITALS: Ht 167.6 cm; Wt 102.5 kg
[2024-08-20 05:33] VITALS: BP 176/86
[2024-08-20 06:16] LABS: BASOPHILS ABSOLUTE AUTO 0.02 K/mm3 (0.00-0.23); BASOPHILS PERCENT AUTO 0 % (0-2); EOSINOPHILS ABSOLUTE AUTO 0.44 K/mm3 (0.00-0.68); EOSINOPHILS PERCENT AUTO 7 % (0-6); Hematocrit 43.3 % (37.0-53.0); IMMATURE GRAN ABSOLUTE AUTO 0.02 K/mm3 (0.00-0.10); IMMATURE GRAN PERCENT AUTO 0 % (0-1); LYMPHOCYTES ABSOLUTE AUTO 1.26 K/mm3 (0.84-5.20); LYMPHOCYTES PERCENT AUTO 21 % (21-46); MONOCYTES ABSOLUTE AUTO 0.54 K/mm3 (0.16-1.47); MONOCYTES PERCENT AUTO 9 % (4-13); Mean Corpuscular HGB 29.2 pg (26.0-34.0); Mean Corpuscular HGB Conc 32.3 g/dL (31.5-36.5); Mean Corpuscular Volume 90 fL (80-100); Mean Platelet Volume 11.5 fL (9.1-12.4); NEUTROPHILS ABSOLUTE AUTO 3.78 K/mm3 (1.96-9.15); NEUTROPHILS PERCENT AUTO 62 % (41-73); Platelet Count 168 K/mm3 (150-400); RDW Coefficient Variation 14.5 % (11.7-14.2); RDW Standard Deviation 47.8 fL (35.1-46.3); White Blood Cell Count 6.06 K/mm3 (4.00-11.30)
[2024-08-20 06:27] LABS: International Normalized Ratio 1.72; Prothrombin Time Results 17.7 Sec (9.7-11.5)
[2024-08-20 06:30] LABS: Albumin, Blood 3.3 g/dL (3.4-5.0); Albumin/Globulin Ratio 0.9 (0.8-1.8); Bilirubin, Total 0.7 mg/dL (0.1-1.0); Bun/Creatinine Ratio 23.1 (12.0-20.0); Calcium, Blood 9.3 mg/dL (8.5-10.1); Creatinine, Blood 1.08 mg/dL (0.60-1.20); Globulin, Blood 3.7 g/dL (2.2-4.0); Potassium, Blood 4.2 mmol/L (3.5-5.5)
== END 2024-08-20 08:49 | disposition home or self-care (01) ==
LOC: ER 05:24
PROVIDERS: Emergency Medicine
DX: L76.22 Postprocedural hemorrhage of skin and subcutaneous tissue following other procedure (principal); Z87.891 Personal history of nicotine dependence; Z79.01 Long term (current) use of anticoagulants; Z79.899 Other long term (current) drug therapy; Z86.73 Personal history of transient ischemic attack (TIA), and cerebral infarction without residual deficits; E78.5 Hyperlipidemia, unspecified; I48.91 Unspecified atrial fibrillation; G47.33 Obstructive sleep apnea (adult) (pediatric); I11.0 Hypertensive heart disease with heart failure; I50.9 Heart failure, unspecified
CPT/HCPCS: 80053; 85025; 85610; 99283

== ENCOUNTER 2024-08-23 13:43 | Emergency (ER) | payer MEDICARE, OTHER ==
[~2024-08-23] VITALS: Ht 167.6 cm; Wt 102.5 kg
[2024-08-23 14:24] VITALS: BP 173/100
== END 2024-08-23 15:43 | disposition home or self-care (01) ==
LOC: ER 13:43
DX: Z43.5 Encounter for attention to cystostomy (principal); Z46.6 Encounter for fitting and adjustment of urinary device; T83.030A Leakage of cystostomy catheter, initial encounter; I11.0 Hypertensive heart disease with heart failure; I50.9 Heart failure, unspecified; Z87.891 Personal history of nicotine dependence; Z79.01 Long term (current) use of anticoagulants; Z79.899 Other long term (current) drug therapy; Z86.73 Personal history of transient ischemic attack (TIA), and cerebral infarction without residual deficits
CPT/HCPCS: 51705; 99283-25; C2627

== ENCOUNTER 2024-08-27 15:53 | Emergency (ER) | payer MEDICARE, OTHER ==
[~2024-08-27] VITALS: Ht 167.6 cm; Wt 113.4 kg
[2024-08-27 17:07] VITALS: BP 186/85
== END 2024-08-27 22:03 | disposition home or self-care (01) ==
LOC: ER 15:53
DX: T83.89XA Other specified complication of genitourinary prosthetic devices, implants and grafts, initial encounter (principal); I11.0 Hypertensive heart disease with heart failure; I50.9 Heart failure, unspecified; E78.5 Hyperlipidemia, unspecified; G47.33 Obstructive sleep apnea (adult) (pediatric); Z87.891 Personal history of nicotine dependence; Z86.73 Personal history of transient ischemic attack (TIA), and cerebral infarction without residual deficits; Z79.01 Long term (current) use of anticoagulants; Z79.899 Other long term (current) drug therapy
CPT/HCPCS: 51705; 99282-25; C2627

== ENCOUNTER 2024-08-31 23:14 | Emergency (ER) | payer MEDICARE, OTHER ==
[~2024-08-31] VITALS: Ht 170.2 cm; Wt 100.7 kg
[2024-09-01 01:20] VITALS: BP 128/81
== END 2024-09-01 01:30 | disposition home or self-care (01) ==
LOC: ER 23:14
DX: T83.091A Other mechanical complication of indwelling urethral catheter, initial encounter (principal); I11.0 Hypertensive heart disease with heart failure; I50.9 Heart failure, unspecified; I48.91 Unspecified atrial fibrillation; G47.33 Obstructive sleep apnea (adult) (pediatric); E78.5 Hyperlipidemia, unspecified; Z86.73 Personal history of transient ischemic attack (TIA), and cerebral infarction without residual deficits; Z87.891 Personal history of nicotine dependence; Z79.01 Long term (current) use of anticoagulants; Z79.899 Other long term (current) drug therapy
CPT/HCPCS: 51700; 51705; 51798; 99283-25; C2627

== ENCOUNTER 2024-09-07 10:06 | Emergency (ER) | payer MEDICARE ==
[~2024-09-07] VITALS: Ht 180.3 cm; Wt 113.4 kg
[2024-09-07 11:22] LABS: Source, Urine Suprapubic Cath
[2024-09-07 11:52] LABS: Bilirubin, Urine Neg (Neg); Blood, Urine 3+ (Neg); Glucose Qualitative, Urine Neg (Neg); Ketones, Urine Neg (Neg); Leukocyte Esterase, Urine 3+ (Neg); Nitrite, Urine Pos (Neg); Protein, Urine 2+ (Neg); Urobilinogen, Urine NORM (Normal)
[2024-09-07 12:19] LABS: Appearance, Urine Hazy (Clear); Color, Urine Yellow (P-Yellow); White Blood Cells, Urine TNTC /hpf (0-5)
[2024-09-07 12:20] LABS: Bacteria Few /hpf; Squamous Epithelial Cells Not Seen /hpf (Few)
[2024-09-07 13:30] VITALS: BP 161/82
== END 2024-09-07 14:08 | disposition home or self-care (01) ==
LOC: ER 10:06
PROVIDERS: Emergency Medicine
DX: T83.89XA Other specified complication of genitourinary prosthetic devices, implants and grafts, initial encounter (principal); E78.5 Hyperlipidemia, unspecified; I11.0 Hypertensive heart disease with heart failure; I50.9 Heart failure, unspecified; G47.33 Obstructive sleep apnea (adult) (pediatric); Z86.73 Personal history of transient ischemic attack (TIA), and cerebral infarction without residual deficits; Z87.891 Personal history of nicotine dependence; Z79.01 Long term (current) use of anticoagulants; Z79.899 Other long term (current) drug therapy
CPT/HCPCS: 51705; 81001; 87077; 87086; 87186; 99283-25

== ENCOUNTER 2024-09-17 20:47 | Emergency (ER) | payer MEDICARE ==
[~2024-09-17] VITALS: Ht 177.8 cm; Wt 101.6 kg
[2024-09-17 20:58] VITALS: BP 125/93
[2024-09-18 00:43] LABS: Source, Urine Suprapubic Cath
[2024-09-18 00:45] LABS: Bilirubin, Urine Neg (Neg); Blood, Urine 4+ (Neg); Glucose Qualitative, Urine Neg (Neg); Ketones, Urine Neg (Neg); Leukocyte Esterase, Urine 3+ (Neg); Nitrite, Urine Pos (Neg); Protein, Urine 2+ (Neg); Specific Gravity, Urine 1.005 (1.003-1.022); Urobilinogen, Urine NORM (Normal)
[2024-09-18 00:53] LABS: Appearance, Urine Hazy (Clear); Color, Urine Yellow (P-Yellow)
[2024-09-18 00:54] LABS: Bacteria Many /hpf; Red Blood Cells, Urine 0-2 /hpf (0-2); Squamous Epithelial Cells Not Seen /hpf (Few); White Blood Cells, Urine TNTC /hpf (0-5)
[2024-09-18] MEDS ORDERED: FOSFOMYCIN TROME3 G1 PO (01:13)
[2024-09-18] MEDS ORDERED: Fosfomycin Tromethamine 3 GM Packet PO ONE (01:15)
== END 2024-09-18 03:36 | disposition home or self-care (01) ==
LOC: ER 20:47
PROVIDERS: Student in an Organized Health Care Education/Training Program
DX: T83.011A Breakdown (mechanical) of indwelling urethral catheter, initial encounter (principal); N39.0 Urinary tract infection, site not specified; I10 Essential (primary) hypertension; I48.91 Unspecified atrial fibrillation; Z79.01 Long term (current) use of anticoagulants; Z79.899 Other long term (current) drug therapy
CPT/HCPCS: 51705; 81001; 87077; 87086; 87186; 99284-25; A9270

== ENCOUNTER 2025-04-30 14:31 | Emergency (ER) | payer MEDICARE, OTHER ==
[~2025-04-30] VITALS: Ht 177.8 cm; Wt 101.9 kg
[2025-04-30] MEDS ORDERED: Miconazole Nitrate 2% 85 GM PWD TOP ONE (14:50)
[2025-04-30 15:56] VITALS: BP 171/90
== END 2025-04-30 17:23 | disposition home or self-care (01) ==
LOC: ER 14:31
DX: T83.89XA Other specified complication of genitourinary prosthetic devices, implants and grafts, initial encounter (principal); Y84.6 Urinary catheterization as the cause of abnormal reaction of the patient, or of later complication, without mention of misadventure at the time of the procedure; I69.954 Hemiplegia and hemiparesis following unspecified cerebrovascular disease affecting left non-dominant side; I11.0 Hypertensive heart disease with heart failure; I50.9 Heart failure, unspecified; I48.20 Chronic atrial fibrillation, unspecified; E78.5 Hyperlipidemia, unspecified; Z79.01 Long term (current) use of anticoagulants; Z79.899 Other long term (current) drug therapy
CPT/HCPCS: 51705; 99283-25; A9270; C2627